=== PATIENT | female | born 1935 | race Caucasian/White ===

== ENCOUNTER 2016-09-30 10:44 | Inpatient (IN) | payer MEDICARE ==
[~2016-09-30] VITALS: Ht 172.7 cm; Wt 61.2 kg
[2016-09-30] MEDS ORDERED: amLODIPine 5 MG TAB PO ONE (12:15)
[2016-09-30] MEDS ORDERED: SALINE FLUSH 10 ML FLUSH PRN (14:05)
[2016-09-30] MEDS ORDERED: MAG HYDROX 30 ML UDC PO PRN (14:05)
[2016-09-30] MEDS ORDERED: KCL CR 10 MEQ CAP PO ONE (14:20)
[2016-09-30] MEDS: SERTRALINE 50 MG TAB PO SCH (15:46)
[2016-09-30] MEDS: SODIUM CHLORIDE 0.9% 1,000 ML IV SCH (15:51)
[2016-09-30 16:12] VITALS: BP_SYST 178; RESP 16; TEMP 98
[2016-09-30] MEDS: LISINOPRIL 20 MG TAB PO SCH (16:23)
[2016-09-30] MEDS: ASPIRIN 81 MG CHEW TAB PO SCH (16:29)
[2016-09-30] MEDS: METOPROLOL XL 50 MG TAB PO SCH (17:00)
[2016-09-30 17:15] VITALS: BMI 20.5
[2016-09-30] MEDS: ACETAMINOPHEN 325 MG TAB PO PRN (17:53)
[2016-09-30 18:38] VITALS: BP_SYST 178
[2016-09-30] MEDS: BUSPIRONE HCL 15 MG TAB PO SCH (19:45)
[2016-09-30] MEDS: ROSUVASTATIN 5 MG TAB PO SCH (19:45)
[2016-09-30] MEDS: FLUTICASONE 0.05% NA BTL NARE EACH SCH (19:46)
[2016-09-30] MEDS: SALINE FLUSH 10 ML FLUSH SCH (19:47)
[2016-09-30 19:48] VITALS: BP_SYST 168; RESP 16; TEMP 97.6
[2016-09-30 23:44] VITALS: BP_SYST 154; RESP 16; TEMP 98.2
[2016-09-30 23:51] VITALS: RESP 16
[2016-10-01] VITALS (7 sets, daily range): BP systolic 130–172; RESP 15–16; TEMP 97.8–98.6
[2016-10-01] MEDS: ACETAMINOPHEN 325 MG TAB PO PRN ×2 (01:11→06:13)
[2016-10-01] MEDS: SODIUM CHLORIDE 0.9% 1,000 ML IV SCH ×2 (04:12→17:28)
[2016-10-01] MEDS: LEVOTHYROXINE 0.088 MG TAB PO SCH (04:42)
[2016-10-01] MEDS: SODIUM CHLORIDE 0.9% FLUSH BAG 500 ML IV SCH (04:43)
[2016-10-01] MEDS: SALINE FLUSH 10 ML FLUSH SCH ×2 (07:51→20:00)
[2016-10-01] MEDS: OMEGA 3 FATTY ACIDS 1 GM CAP PO SCH (08:58)
[2016-10-01] MEDS: ASPIRIN 81 MG CHEW TAB PO SCH (08:59)
[2016-10-01] MEDS: BUSPIRONE HCL 15 MG TAB PO SCH ×2 (08:59→21:00)
[2016-10-01] MEDS: LISINOPRIL 20 MG TAB PO SCH (08:59)
[2016-10-01] MEDS: MULTIVITS/MINERALS (THERAGRAN M) TAB PO SCH (09:00)
[2016-10-01] MEDS: SERTRALINE 50 MG TAB PO SCH (09:00)
[2016-10-01] MEDS: CHOLECALCIFEROL 1,000 UNITS TAB PO SCH (09:00)
[2016-10-01] MEDS: amLODIPine 10 MG TAB PO SCH (12:13)
[2016-10-01] MEDS: METOPROLOL XL 50 MG TAB PO SCH (16:51)
[2016-10-01] MEDS: ROSUVASTATIN 5 MG TAB PO SCH (21:00)
[2016-10-01] MEDS: FLUTICASONE 0.05% NA BTL NARE EACH SCH (21:01)
[2016-10-02] VITALS (9 sets, daily range): BP systolic 122–180; RESP 16; TEMP 97.8–98.6
[2016-10-02] MEDS: LEVOTHYROXINE 0.088 MG TAB PO SCH (05:58)
[2016-10-02] MEDS: SODIUM CHLORIDE 0.9% FLUSH BAG 500 ML IV SCH (05:58)
[2016-10-02] MEDS: SERTRALINE 50 MG TAB PO SCH (07:57)
[2016-10-02] MEDS: CHOLECALCIFEROL 1,000 UNITS TAB PO SCH (07:57)
[2016-10-02] MEDS: MULTIVITS/MINERALS (THERAGRAN M) TAB PO SCH (07:57)
[2016-10-02] MEDS: LISINOPRIL 20 MG TAB PO SCH (07:58)
[2016-10-02] MEDS: ASPIRIN 81 MG CHEW TAB PO SCH (07:58)
[2016-10-02] MEDS: BUSPIRONE HCL 15 MG TAB PO SCH ×2 (07:58→20:00)
[2016-10-02] MEDS: OMEGA 3 FATTY ACIDS 1 GM CAP PO SCH (07:58)
[2016-10-02] MEDS: amLODIPine 10 MG TAB PO SCH (07:58)
[2016-10-02] MEDS: SALINE FLUSH 10 ML FLUSH SCH ×2 (07:59→20:01)
[2016-10-02] MEDS: SODIUM CHLORIDE 0.9% 1,000 ML IV SCH (07:59)
[2016-10-02] MEDS: FEXOFENADINE 180 MG TAB PO SCH (16:03)
[2016-10-02] MEDS: METOPROLOL XL 50 MG TAB PO SCH (17:55)
[2016-10-02] MEDS: ROSUVASTATIN 5 MG TAB PO SCH (20:00)
[2016-10-02] MEDS: FLUTICASONE 0.05% NA BTL NARE EACH SCH (20:00)
[2016-10-03 03:41] VITALS: BP_SYST 120; RESP 16; TEMP 98
[2016-10-03] MEDS: SODIUM CHLORIDE 0.9% FLUSH BAG 500 ML IV SCH (05:18)
[2016-10-03] MEDS: LEVOTHYROXINE 0.088 MG TAB PO SCH (06:10)
[2016-10-03 07:39] VITALS: BP_SYST 140; RESP 16; TEMP 97.9
[2016-10-03] MEDS: FEXOFENADINE 180 MG TAB PO SCH (08:59)
[2016-10-03] MEDS: SALINE FLUSH 10 ML FLUSH SCH (08:59)
[2016-10-03] MEDS: OMEGA 3 FATTY ACIDS 1 GM CAP PO SCH (08:59)
[2016-10-03] MEDS: SERTRALINE 50 MG TAB PO SCH (09:00)
[2016-10-03] MEDS: CHOLECALCIFEROL 1,000 UNITS TAB PO SCH (09:00)
[2016-10-03] MEDS: ASPIRIN 81 MG CHEW TAB PO SCH (09:00)
[2016-10-03] MEDS: LISINOPRIL 20 MG TAB PO SCH (09:00)
[2016-10-03] MEDS: BUSPIRONE HCL 15 MG TAB PO SCH (09:00)
[2016-10-03] MEDS: amLODIPine 10 MG TAB PO SCH (09:00)
[2016-10-03] MEDS: MULTIVITS/MINERALS (THERAGRAN M) TAB PO SCH (09:00)
[2016-10-03 11:05] VITALS: BP_SYST 138; RESP 16; TEMP 98.2
[2016-10-03 12:27] VITALS: BP_SYST 138; RESP 16; TEMP 98.2
== END 2016-10-03 14:13 | disposition home or self-care (01) | DRG 305 ==
LOC: ENRESERVTM → ENRESERVDT → ER 10:44 → EMR 14:15 → ENPENDDIS 14:15 → 5THW 15:37
PROVIDERS: ADMIT Internal Medicine; ATTEND Internal Medicine
CPT/HCPCS: 36415; 71010; 80048; 80053; 81001; 82553; 83735; 83880; 84439; 84443; 84484; 85025; 93005; 93306; 94799; 99223; 99232